=== PATIENT | male | born 1985 | race African-American/Black ===

== ENCOUNTER 2016-07-11 12:17 | Emergency (ER) | payer SELFPAY ==
--- NOTE | 2016-07-11 12:41 | ER Document Report ---
ED Medical Screen (RME) - General Stated Complaint: FOOT PAIN Time seen by provider: 12:41 Mode of Arrival: Ambulatory Information source: Patient - HPI Patient complains to provider of: LEFT FOOT PAIN Onset: Other - 2015 INTERMITTENT, WORSE LAST TWO MONTHS Onset/Duration: Intermittent Context: STATES PAIN IS IN LEFT HEEL, AREA IS BLACK AND PAINFUL. STEPPED ON EARRING IN 2014 Quality of pain: Throbbing Severity: Moderate Pain Level: 3 Associated Symptoms: None Exacerbated by: Walking Relieved by: Denies Similar symptoms previously: Yes Recently seen / treated by doctor: No - Related Data Smoking: Cigarettes Frequency of alcohol use: None Drug Abuse: None Physical Exam - Vital signs Vitals: Temp Pulse Resp BP Pulse Ox 98.3 F 82 16 119/60 97 07/11/16 12:22 07/11/16 12:22 07/11/16 12:22 07/11/16 12:22 07/11/16 12:22 Course - Vital Signs Vital signs: Temp Pulse Resp BP Pulse Ox 98.3 F 82 16 119/60 97 07/11/16 12:22 07/11/16 12:22 07/11/16 12:22 07/11/16 12:22 07/11/16 12:22
[2016-07-11] MEDS ORDERED: ACETAMINOPHEN 325 MG TABLET PO ONE (13:47)
[2016-07-11] MEDS ORDERED: DIPH/PERTUSS(ACELL)/TETANUS VAC/PF 0.5 ML SYR (>=10YO) IM ONE (13:47)
--- NOTE | 2016-07-11 13:52 | ER Document Report ---
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 Patient states he has no idea when his last tetanus was. TRAVEL OUTSIDE OF THE [place] IN LAST 30 DAYS: No - HPI Patient complains to provider of: Injury, Pain Location: Foot - Left heel Occurred: Other - 2014 Where: Home Onset/Duration: Persistent Quality of pain: Throbbing Severity: Moderate Pain Level: 3 Context: Other - Stepped on a hearing in 2014 Recent injury: No Associated symptoms: Painful ambulation Exacerbated by: Walking Relieved by: Nothing - Related Data Allergies/Adverse Reactions: No Known Allergies Allergy (Verified 07/11/16 12:46) Past Medical History - General Information source: Patient - Social History Smoking Status: Current Every Day Smoker Chew tobacco use (# tins/day): Yes Frequency of alcohol use: None Drug Abuse: None Lives with: Family Family History: denies: Arthritis, CAD, COPD, CVA, DM, Hyperlipidemia, Hypertension, Malignancy, Thyroid Disfunction Patient has suicidal ideation: No Patient has homicidal ideation: No - Past Medical History Cardiac Medical History: Reports: None Pulmonary Medical History: Reports: None EENT Medical History: Reports: None Neurological Medical History: Reports: None Endocrine Medical History: Reports: None Renal/ Medical History: Reports: None Malignancy Medical History: Reports None GI Medical History: Reports: None Musculoskeltal Medical History: Reports Hx Musculoskeletal Trauma - Fractured ankle Skin Medical History: Reports None Psychiatric Medical History: Reports: None - Fractured ankle Traumatic Medical History: Reports: Hx Fractures Infectious Medical History: Reports: None Past Surgical History: Reports: Hx Orthopedic Surgery - Left ankle - Immunizations Immunizations up to date: Yes Hx Diphtheria, Pertussis, Tetanus Vaccination: Yes - 07/11/2016 Review of Systems - Review of Systems Constitutional: No symptoms reported EENT: No symptoms reported Cardiovascular: No symptoms reported Respiratory: No symptoms reported Gastrointestinal: No symptoms reported Genitourinary: No symptoms reported Male Genitourinary: No symptoms reported Musculoskeletal: Other - Tenderness to left heel Skin: No symptoms reported Hematologic/Lymphatic: No symptoms reported Neurological/Psychological: No symptoms reported Physical Exam - Vital signs Vitals: Temp Pulse Resp BP Pulse Ox 98.3 F 82 16 119/60 97 07/11/16 12:22 07/11/16 12:22 07/11/16 12:22 07/11/16 12:22 07/11/16 12:22 Interpretation: Normal - General General appearance: Appears well, Alert - HEENT Head: Normocephalic, Atraumatic Eyes: Normal Pupils: PERRL - Respiratory Respiratory status: No respiratory distress Chest status: Nontender Breath sounds: Normal Chest palpation: Normal - Cardiovascular Rhythm: Regular Heart sounds: Normal auscultation Murmur: No - Abdominal Inspection: Normal Distension: No distension Bowel sounds: Normal Tenderness: Nontender Organomegaly: No organomegaly - Back Back: Normal, Nontender - Extremities General upper extremity: Normal inspection, Nontender, Normal color, Normal ROM , Normal temperature General lower extremity: Nontender, Normal color, Normal ROM, Normal temperature , Normal weight bearing. No: Saul's sign Foot: Other - Small dark tender area to the left heel no foreign body x-ray negative patient states he stepped on an ear ring in 2015 - Neurological Neuro grossly intact: Yes Cognition: Normal Orientation: AAOx4 Fabi Coma Scale Eye Opening: Spontaneous Fabi Coma Scale Verbal: Oriented Fabi Coma Scale Motor: Obeys Commands [place] Coma Scale Total: 15 Speech: Normal Motor strength normal: LUE, RUE, LLE, RLE Sensory: Normal - Psychological Associated symptoms: Normal affect, Normal mood - Skin Skin Temperature: Warm Skin Moisture: Dry Skin Color: Normal Course - Re-evaluation Re-evalutation: 07/11/16 20:18 Discussed x-ray with patient, patient instructed will not be given narcotics as this pain has been there for a couple years with no acute injury. Patient was given his tetanus as he has not had one. - Vital Signs Vital signs: Temp Pulse Resp BP Pulse Ox 98.7 F 80 16 124/66 97 07/11/16 14:20 07/11/16 14:20 07/11/16 14:20 07/11/16 14:20 07/11/16 14:20 - Diagnostic Test Radiology reviewed: Image reviewed, Reports reviewed Discharge - Discharge Clinical Impression: Pain of left heel Disposition: HOME, SELF-CARE Instructions: Family Physicians / Practices Additional Instructions: You were seen today for pain in your left heel that has been there since 2015 when he stepped on a ear ring. There is no open wound and no infection noted. Epsom Salt Soaks Soak the wound area in a container of warm epsom salt water. If you can't get the wound area into a bucket or noguera, use a folded towel soaked in the epsom salt solution and apply to the area. Use clean hot tap water (about the temperature of a very warm bath), mixing in about one (1) teaspoon for every pint of water. Two gallon --> 16 teaspoons Epsom Salts One gallon --> 8 teaspoons Epsom Salts Two quarts --> 4 teaspoons Epsom Salts One quart --> 2 teaspoons Epsom Salts Soak the wound for about 20 minutes while gently moving it around in the water. Repeat this four (4) times a day. Tetanus Immunization Given You have been given an immunization against tetanus. Please record this in your records. In general, a booster is needed only once every 10 years. The tetanus shot protects against tetanus or "lockjaw," which is a complication of certain wound infections (the tetanus shot cannot protect against the actual infection). The immunization site may become warm and red due to local reaction. If this occurs, apply warm compresses and take aspirin or ibuprofen to reduce inflammation and discomfort. Return for evaluation if the reaction becomes severe. FOLLOW-UP CARE: If you have been referred to a physician for follow-up care, call the physician s office for an appointment as you were instructed or within the next two days. If you experience worsening or a significant change in your symptoms, notify the physician immediately or return to the Emergency Department at any time for re-evaluation. Forms: Smoking Cessation Education
[2016-07-11 14:24] VITALS: BP 124/66
== END 2016-07-11 14:21 | disposition home or self-care (01) ==
LOC: ER 12:17
DX: M79.672 Pain in left foot (principal); W22.8XXS Striking against or struck by other objects, sequela; F17.200 Nicotine dependence, unspecified, uncomplicated
CPT/HCPCS: 90471; 90715; 99283

== ENCOUNTER 2017-10-01 18:44 | Emergency (ER) | payer SELFPAY ==
--- NOTE | 2017-10-01 19:54 | RADIOLOGY REPORT (SQ) ---
EXAM DESCRIPTION: ANKLE RIGHT COMPLETE COMPLETED DATE/TIME: 10/01/2017 7:47 pm REASON FOR STUDY: pain s/p injury COMPARISON: None. NUMBER OF VIEWS: Three views. TECHNIQUE: AP, lateral, and oblique radiographic images acquired of the right ankle. LIMITATIONS: None. FINDINGS: MINERALIZATION: Normal. BONES: No acute fracture or dislocation. No worrisome bone lesions. JOINTS: No effusions. SOFT TISSUES: Generalized soft tissue swelling. OTHER: No other significant finding. IMPRESSION: Soft tissue swelling. No acute fracture TECHNICAL DOCUMENTATION: JOB ID: [id number] [employer]- All Rights Reserved Reading location - IP/workstation name: [email or web address]
--- NOTE | 2017-10-01 23:20 | ER Document Report ---
ED General - General Chief Complaint: Ankle Injury Stated Complaint: FOOT PAIN Time Seen by Provider: 10/01/17 23:11 Mode of Arrival: Ambulatory Information source: Patient TRAVEL OUTSIDE OF THE [place] IN LAST 30 DAYS: No - HPI Notes: 32-year-old male presents today with complaints of ankle pain after injury yesterday while playing as well. Pain is 5+, throbbing achy. Unable to bear full weight. Worse with walking angle, better with rest. Has not tried any heat, elevation and ibuprofen/Tylenol. Denies any other area of injury. Denies any numbness or tingling to bilateral lower extremities equally. Denies previous injury ankle. Denies fevers, chills, chest pain,palpitations, shortness of breath, dyspnea, nausea, vomiting, diarrhea, abdominal pain, hematuria,blurred vision, double vision, loss of vision, speech changes, LH, dizziness, syncope, headaches, wheezing, ST, URI, neck pain, weakness, bowel or bladder dysfunction, saddle anesthesia, numbness or tingling in bilateral upper or lower extremities equally, muscle paralysis, weakness in bilateral upper or lower extremities equally or rash. Denies IV drug use. - Related Data Allergies/Adverse Reactions: No Known Allergies Allergy (Verified 07/11/16 12:46) Past Medical History - General Information source: Patient - Social History Smoking Status: Current Every Day Smoker Chew tobacco use (# tins/day): No Frequency of alcohol use: None Drug Abuse: Marijuana Family History: Reviewed & Not Pertinent Patient has suicidal ideation: No Patient has homicidal ideation: No Renal/ Medical History: Denies: Hx Peritoneal Dialysis Musculoskeltal Medical History: Reports Hx Musculoskeletal Trauma - Fractured ankle Traumatic Medical History: Reports: Hx Fractures Past Surgical History: Reports: Hx Orthopedic Surgery - Left ankle - Immunizations Immunizations up to date: Yes Hx Diphtheria, Pertussis, Tetanus Vaccination: Yes - 07/11/2016 Review of Systems - Review of Systems Constitutional: No symptoms reported EENT: No symptoms reported Cardiovascular: No symptoms reported Respiratory: No symptoms reported Gastrointestinal: No symptoms reported Genitourinary: No symptoms reported Male Genitourinary: No symptoms reported Musculoskeletal: See HPI Skin: No symptoms reported Hematologic/Lymphatic: No symptoms reported Neurological/Psychological: No symptoms reported Physical Exam - Vital signs Vitals: Temp Pulse Resp BP Pulse Ox 97.9 F 70 18 132/68 H 99 10/01/17 19:20 10/01/17 19:20 10/01/17 19:20 10/01/17 19:20 10/01/17 19:20 - Notes Notes: PHYSICAL EXAMINATION: GENERAL: Well-appearing, well-nourished and in no acute distress. HEAD: Atraumatic, normocephalic. EYES: Pupils equal round and reactive to light, extraocular movements intact, sclera anicteric, conjunctiva are normal. ENT: Nares patent, oropharynx clear without exudates. Moist mucous membranes. NECK: Normal range of motion, supple without lymphadenopathy LUNGS: Breath sounds clear to auscultation bilaterally and equal. No wheezes rales or rhonchi. HEART: Regular rate and rhythm without murmurs ABDOMEN: Soft, nontender, nondistended abdomen. No guarding, no rebound. No masses appreciated. Musculoskeletal: Normal range of motion, no pitting or edema. No cyanosis. Right ankle with tenderness on the lateral aspect. Pain with inversion, no pain with eversion. DTR +2 in bilateral lower extremities. No motor and sensory function in bilateral lower extremities equally. Negative squeeze test. Distal pulses + lower extremities equally. No noted ecchymosis, open wounds or drainage. Unable to bear full weight. Cap refill less than 3 seconds. PSYCH: Normal mood, normal affect. SKIN: Warm, Dry, normal turgor, no rashes or lesions noted. Course - Re-evaluation Re-evalutation: 10/01/17 23:15 Healthy, afebrile male shows a right ankle x-ray negative for any acute fractures per radiology. At this time will discharge with return precautions and follow-up recommendations. Advised to follow-up with retail pos specialist , Rice therapy, is Aircast and crutches as directed. [id number] ibuprofen and Tylenol as needed for pain control. Verbal discharge instructions given a the bedside and opportunity for questions given. Medication warnings reviewed. Patient is in agreement with this plan and has verbalized understanding of return precautions and the need for primary care follow-up in the next 24-72 hours. - Vital Signs Vital signs: Temp Pulse Resp BP Pulse Ox 97.9 F 70 18 132/68 H 99 10/01/17 19:20 10/01/17 19:20 10/01/17 19:20 10/01/17 19:20 10/01/17 19:20 Discharge - Discharge Clinical Impression: Right ankle sprain Qualifiers: Encounter type: initial encounter Involved ligament of ankle: other ligament Qualified Code(s): S93.491A - Sprain of other ligament of right ankle, initial encounter Condition: Good Disposition: HOME, SELF-CARE Instructions: Sprained Ankle ([facility]), Ice & Elevation ([facility]), Ankle Stirrup Splint ([facility]), Use of Crutches ([facility]), Splint Precautions ([facility]) Referrals: BRUCE ALLEN DO [ACTIVE STAFF] - Follow up in 3-5 days JASON SCHULER MD [ACTIVE STAFF] - Follow up in 3-5 days
[2017-10-01 23:36] VITALS: BP 110/92
== END 2017-10-01 23:37 | disposition home or self-care (01) ==
LOC: ER 18:44
DX: S93.401A Sprain of unspecified ligament of right ankle, initial encounter (principal); X50.9XXA Other and unspecified overexertion or strenuous movements or postures, initial encounter; Y93.67 Activity, basketball; F17.200 Nicotine dependence, unspecified, uncomplicated
CPT/HCPCS: 99283